=== PATIENT | female | born 1975 | race Caucasian/White ===

== ENCOUNTER 2021-06-29 15:22 | Emergency (ER) | payer BC ==
[~2021-06-29] VITALS: Ht 175 cm; Wt 77.0 kg
[~2021-06-29 15:22] MED LIST: ALPR1TAB2 PO; CPR500T PO; FLC100T1 PO; METR500T PO; ONDA8TAB13 PO; SRTR100T PO; TRAM50TA2 PO; ZLP10T PO
[2021-06-29] MEDS ORDERED: ORPHENADRINE 60 MG/2 ML (NORFLEX) AMP (ED ONLY) IM ONE (16:00)
[2021-06-29] MEDS ORDERED: KETOROLAC 60 MG/2 ML VIAL IM ONE (16:00)
--- NOTE | 2021-06-29 16:06 | ED General ---
General Chief Complaint: General Problems/Pain Stated Complaint: FALL Nursing Triage Note: AMB TO ED WITH C/O OF CHRONIC NECK PAIN FOR 3 WEEKS REPORTS HAS NUMBNESS IN FINGERS IS NOT NEW. IS TO HAVE MRI AT [facility] ON WED PER DR WALSH. TODAY FELLOVER HER DOG. AND CONCERN THAT SHE MAY OF INJURED HER NECK TODAY MORE. Source of Information: Patient Exam Limitations: No Limitations History of Present Illness Date Seen by Provider: Jun 29, 2021 Time Seen by Provider: 16:02 Initial Comments To ER with c/o exacerbation of chronic neck pain that starts left side and radiates down left arm to the thumb pointer and middle finger. That paresthesia is not new. The pain is worse than usual. This exacerbation started after she tripped over her dog this morning. She states that she has an MRI of her neck scheduled at [facility] [address] [place] [address] on Wednesday the of this week. Timing/Duration: 4-6 Hours Severity: Moderate Allergies and Home Medications Allergies Coded Allergies: No Known Drug Allergies (Unverified , 03/01/14) Home Medications Alprazolam 1 Mg Tablet, 1 MG PO TID, (Reported) Ciprofloxacin 500 Mg Tab, 500 MG PO BID Prescribed by: WENDY SHUKLA on 03/01/141956 Fluconazole 100 Mg Tablet, 1 EACH PO DAILY Prescribed by: WENDY SHUKLA on 03/01/142018 Metronidazole 500 Mg Tablet, 500 MG PO BID Prescribed by: WENDY SHUKLA on 03/01/141956 Ondansetron 8 Mg Tab.rapdis, 8 MG PO Q6H PRN for NAUSEA/VOMITING Prescribed by: WENDY SHUKLA on 03/01/141956 Prednisone 20 Mg Tab, 20 MG PO DAILY Take 3 tabs(60mg)daily, decrease by 1/2 tab(10mg)daily. Prescribed by: KENIA DENNIS on 06/29/211626 Sertraline Hcl 100 Mg Tab, 100 MG PO DAILY, (Reported) Tramadol Hcl 50 Mg Tablet, 50 MG PO Q4H PRN for PAIN Prescribed by: WENDY SHUKLA on 03/01/141956 Zolpidem Tartrate 10 Mg Tab, 10 MG PO HS, (Reported) Patient Home Medication List Home Medication List Reviewed: Yes Review of Systems Review of Systems Constitutional: see HPI EENTM: see HPI Respiratory: no symptoms reported Cardiovascular: no symptoms reported Genitourinary: no symptoms reported Musculoskeletal: no symptoms reported Skin: no symptoms reported Psychiatric/Neurological: See HPI, Paresthesia Hematologic/Lymphatic: No Symptoms Reported Immunological/Allergic: no symptoms reported Past Vlbovtd-Zuphtq-Kvnjje Hx Patient Social History Tobacco Use?: No Substance use?: No Pt feels they are or have been: No Physical Exam Vital Signs Vital Signs - First Documented 06/29/21 15:49 Temp 36.9 Pulse 95 Resp 18 B/P (MAP) 118/78 (91) O2 Delivery Room Air Capillary Refill : Less Than 3 Seconds Height, Weight, BMI Height: 5'9" Weight: 217lbs. oz. 98.459048kp; 25.00 BMI Method:Stated General Appearance: No Apparent Distress, WD/WN Eyes: Bilateral Eye Normal Inspection, Bilateral Eye PERRL, Bilateral Eye EOMI HEENT: PERRL/EOMI, TMs Normal, Normal ENT Inspection Neck: Full Range of Motion, Normal Inspection Respiratory: No Accessory Muscle Use, No Respiratory Distress Cardiovascular: Regular Rate, Rhythm Gastrointestinal: Normal Bowel Sounds, Non Tender, Soft Extremity: Normal Capillary Refill, Normal Inspection Neurologic/Psychiatric: Alert, Oriented x3 Skin: Normal Color, Warm/Dry Progress/Results/Core Measures Suspected Sepsis SIRS Temperature: Pulse: 95 Respiratory Rate: 18 Blood Pressure 118 /78 Mean: 91 Results/Orders My Orders Orders - KENIA DENNIS APRN Ketorolac Injection (Toradol Injection) (06/29/21 16:00) Orphenadrine Inj (Ed Only) (Norflex Inje (06/29/21 16:00) Ct Head/Cervical Spine Wo (06/29/21 15:58) Medications Given in ED Current Medications Medications Dose Ordered Sig/Jodie Route Start Time Stop Time Status Last Admin Dose Admin Ketorolac Tromethamine 60 mg ONCE ONCE IM 06/29/21 16:00 06/29/21 16:01 DC 06/29/21 16:14 60 MG Orphenadrine Citrate 60 mg ONCE ONCE IM 06/29/21 16:00 06/29/21 16:01 DC 06/29/21 16:14 60 MG Vital Signs/I&O 06/29/21 15:49 Temp 36.9 Pulse 95 Resp 18 B/P (MAP) 118/78 (91) O2 Delivery Room Air Capillary Refill : Less Than 3 Seconds Blood Pressure Mean: 91 Departure Impression Primary Impression: Cervical radiculopathy Disposition: 01 HOME, SELF-CARE Condition: Stable Departure-Patient Inst. Decision time for Depature: 16:26 Referrals: CASA JOE DO (PCP/Family) Primary Care Physician Patient Instructions: Radiculopathy Add. Discharge Instructions: Keep your appointment with spine surgery as scheduled 2. Medication as directed. All discharge instructions reviewed with patient and/or family. Voiced understanding. Scripts Hydrocodone/Acetaminophen (Hydrocodone-Acetamin 5-325 mg) 1 Each Tablet 1 TAB PO Q4H PRN for PAIN-MODERATE (5-7), #5 TAB Prov: KENIA DENNIS APRN 06/29/21 Prednisone (Prednisone) 20 Mg Tab 20 MG PO DAILY, #11 TAB Take 3 tabs(60mg)daily, decrease by 1/2 tab(10mg)daily. Prov: KENIA DENNIS APRN 06/29/21 KENIA DENNIS APRN Jun 29, 2021 16:06
[2021-06-29] MEDS ORDERED: PRD20T PO (16:27)
[2021-06-29] MEDS ORDERED: ACHD5005 PO (16:37)
--- NOTE | 2021-06-29 16:44 | Diagnostic Imaging Report ---
PROCEDURE: CT head and CT cervical spine without contrast. TECHNIQUE: Multiple contiguous axial images were obtained through the brain and cervical spine without the use of intravenous contrast. Sagittal and coronal reformations through the cervical spine were then performed. Auto Exposure Controls were utilized during the CT exam to meet ALARA standards for radiation dose reduction. INDICATION: Fall. Neck pain. COMPARISON: None. FINDINGS: CT head: No intracranial hemorrhage, mass effect, hydrocephalus or extra-axial fluid collection. No CT evidence for territorial infarction. Osseous structures are intact. Visualized paranasal sinuses and mastoids are clear. CT cervical spine: Normal alignment. Vertebral body heights preserved. No fracture. Moderate degenerative endplate changes at C5-C6. No evidence of high-grade spinal canal stenosis on soft tissue windows. Paravertebral soft tissues are unremarkable. Lung apices are clear. IMPRESSION: No acute intracranial or cervical spine CT findings. Dictated by: Dictated on workstation # [id number]
[2021-06-29 16:59] VITALS: BP 118/78
== END 2021-06-29 16:59 | disposition home or self-care (01) ==
LOC: EDUNIT# 15:22 → ER 15:25
DX: M54.12 Radiculopathy, cervical region (principal)
CPT/HCPCS: 70450; 72125